=== PATIENT | female | born 1990 | race American Indian/Alaskan Native ===

== ENCOUNTER 2017-08-11 12:46 | Emergency (ER) | payer BC ==
[2017-08-11 14:05] LABS: Basophils % (Auto) 0.5 % (0.0-1.8); Eosinophils % (Auto) 0.1 % (0.0-4.3); Hematocrit 40.6 % (30.3-42.9); Hemoglobin 13.9 gm/dl (10.1-14.3); Mean Corpuscular HGB Conc 34 % (30-34); Mean Corpuscular Hemoglobin 29 pg (28-32); Mean Corpuscular Volume 85 fl (79-97); Platelet Count 225 K/mm3 (140-440); Red Cell Distribution Width 12.5 % (13.2-15.2); White Blood Count 8.4 K/mm3 (4.5-11.0)
[2017-08-11 14:06] LABS: Alanine Aminotransferase 11 units/L (7-56); Albumin 4.4 g/dL (3.9-5); Alkaline Phosphatase 63 units/L (35-129); Anion Gap 23 mmol/L; BUN/Creatinine Ratio 15; Blood Urea Nitrogen 9 mg/dL (7-17); Calcium 9.6 mg/dL (8.4-10.2); Carbon Dioxide 18 mmol/L (22-30); Chloride 97.5 mmol/L (98-107); Glucose 122 mg/dL (65-100); Lipase 16 units/L (13-60); Potassium 4.6 mmol/L (3.6-5.0); Sodium 134 mmol/L (137-145); Total Protein 8.6 g/dL (6.3-8.2)
[2017-08-11 14:35] LABS: Bilirubin,Urine NEG (Negative); Blood,Urine SM (Negative); Ketones,Urine 80 mg/dL (Negative); Leukocyte Esterase,Urine NEG (Negative); Mucus,Urine FEW /HPF; Nitrite,Urine NEG (Negative); Urobilinogen,Urine < 2.0 mg/dL (<2.0)
--- NOTE | 2017-08-11 15:20 | Emergency Department Report ---
Chief Complaint: Abdominal Pain Stated Complaint: NAUSEA Time Seen by Provider: 08/11/17 15:16 - HPI History of Present Illness: PT c/o vomiting x 4-5 days. Decreased po intake. + acid reflux + upper abd discomfort. - ROS Review of Systems: + upper abd pain - vaginal bleeding - Exam Vital Signs: Vital Signs 08/11/17 13:19 Temperature 98.4 F Pulse Rate 79 Respiratory 16 Rate Blood Pressure 125/74 O2 Sat by Pulse 100 Oximetry Physical Exam: pt looks well, non toxic. steady gait. RUQ TTP MSE screening note: Focused history and physical exam performed. Due to findings the following was ordered: labs, US ED Medical Decision Making - Lab Data Result diagrams: 08/11/17 13:38 08/11/17 13:38 ED Disposition for MSE Condition: Stable Instructions: Abdominal Pain (ED) Referrals: PRIMARY CARE, [Primary Care Provider] - 3-5 Days
[2017-08-11] MEDS ORDERED: NACL 0.9% 1000 ML 1,000 ML IV ONE (15:22)
--- NOTE | 2017-08-11 18:05 | Ultrasound Report ---
FINAL REPORT PROCEDURE: US OB \T\lt; = 14 WEEKS FETUS TECHNIQUE: Real-time transabdominal and transvaginal sonography of the uterus, placenta, amniotic fluid, adnexa, and fetus was performed with image documentation. Measurements were obtained to determine age/size. M-mode Doppler was used to document heartbeat. CPT 56159 and 52716 HISTORY: RUQ abd pain, lower abd tenderness, + preg COMPARISON: No prior studies are available for comparison. FINDINGS: ADDITIONAL GESTATION: None. Single live intrauterine is seen with crown-rump length of 3.9 millimeters. This corresponds to 6 weeks 0 days gestational age. Estimated date of delivery is April 06, 2018. heart rate is 120 beats per minute. Yolk sac is seen. Minimal free pelvic fluid is likely physiologic. Right ovary measures 2.3 x 1.1 x 1.5 cm. Left ovary measures 4.3 x 2.7 x 3.3 cm. It has a complex cyst. Minimal likely physiologic free pelvic fluid is seen. IMPRESSION: 1. Single live intrauterine gestation at approximately 6 weeks 0 days 2. EDC by US April 06, 2018 3. Complete anatomic survey at 18-20 weeks suggested.
--- NOTE | 2017-08-11 18:06 | Ultrasound Report ---
FINAL REPORT PROCEDURE: US OB TRANSVAGINAL TECHNIQUE: Real-time transabdominal and transvaginal sonography of the uterus, placenta, amniotic fluid, adnexa, and fetus was performed with image documentation. Measurements were obtained to determine age/size. M-mode Doppler was used to document heartbeat. CPT 20429 and 63040 HISTORY: RUQ abd pain COMPARISON: No prior studies are available for comparison. FINDINGS: ADDITIONAL GESTATION: None. Single live intrauterine is seen with crown-rump length of 3.9 millimeters. This corresponds to 6 weeks 0 days gestational age. Estimated date of delivery is April 06, 2018. heart rate is 120 beats per minute. Yolk sac is seen. Minimal free pelvic fluid is likely physiologic. Right ovary measures 2.3 x 1.1 x 1.5 cm. Left ovary measures 4.3 x 2.7 x 3.3 cm. It has a complex cyst. Minimal likely physiologic free pelvic fluid is seen. IMPRESSION: 1. Single live intrauterine gestation at approximately six weeks 0 days 2. EDC by US April 06, 2018 3. Complete anatomic survey at 18-20 weeks suggested.
--- NOTE | 2017-08-11 18:17 | Ultrasound Report ---
FINAL REPORT EXAM: US ABDOMEN LIMITED HISTORY: RUQ abd pain TECHNIQUE: Directed sonography of the right upper quadrant. PRIORS: None. FINDINGS: Gallbladder is of normal size and echogenicity without evidence of calculi. Wall thickness within normal limits. Intra-and extrahepatic bile ducts are of normal caliber. Liver has normal homogeneous echogenicity without focal abnormalities. Right kidney measures 9.6 cm in longest dimension and is grossly unremarkable. Pancreas poorly visualized due to overlying bowel gas. IMPRESSION: 1. No acute findings.
[2017-08-11] MEDS ORDERED: REGLAN IV ONE (19:40)
[2017-08-11] MEDS ORDERED: NACL 0.9% 1000 ML 1,000 ML ONE (19:51)
[2017-08-11] MEDS ORDERED: TYLENOL PO ONE (20:47)
--- NOTE | 2017-08-11 21:47 | Emergency Department Report ---
Vomiting/Diarrhea - HPI Chief Complaint: Abdominal Pain Stated Complaint: NAUSEA Time Seen by Provider: 08/11/17 15:16 Duration: 3 Days Severity: severe Nausea/Vomiting Severity: Severe Diarrhea Severity: None Pain Location: Other (pelvic pain) Pain Severity: Moderate Other History: Patient is a 26-year-old who presents due to nausea and vomiting 3 days. Patient states that she has had severe vomiting and has been retching. Patient denies any fever or chills. Patient states that she has epigastric pain and pelvic pain. Patient states that her last menstrual cycle was in July. Patient has any vaginal bleeding and states she has vaginal discharge. Patient is A1 L0. Patient denies any surgery in the past. ED Review of Systems ROS: Stated complaint: NAUSEA Other details as noted in HPI Comment: All other systems reviewed and negative Constitutional: no symptoms reported. denies: chills, diaphoresis, fever, malaise, weakness Respiratory: no symptoms reported. denies: cough, orthopnea, shortness of breath Cardiovascular: denies: chest pain Gastrointestinal: abdominal pain, nausea, vomiting. denies: diarrhea, constipation, hematemesis, hematochezia Genitourinary: discharge. denies: urgency, dysuria, frequency, hematuria, abnormal menses, dyspareunia Musculoskeletal: denies: back pain, joint swelling, arthralgia Skin: rash Neurological: denies: headache ED Past Medical Hx - Past Medical History Previous Medical History?: No - Surgical History Past Surgical History?: Yes Additional Surgical History: eye surgery as a child - Social History Smoking Status: Never Smoker Substance Use Type: None - Medications Home Medications: Home Medications Medication Instructions Recorded Confirmed Last Taken Type Acetaminophen [Tylenol Extra 500 mg PO Q8HR PRN #30 tablet 08/11/17 Unknown Rx Strength] Metoclopramide [Reglan] 10 mg PO Q6HR PRN #20 tab 08/11/17 Unknown Rx Vomiting Diarrhea Exam - Exam General: Vital signs noted. No distress. Alert and acting appropriately. Neck: No Adenopathy, No Rigidity Abdomen: Tenderness: Yes, Peritoneal Signs: No, Distention: No, Hyperactive Bowel sounds: No Skin exam: Rash: No, Edema: No Neurologic: Alert and oriented, no deficits. Musculoskeletal: Unremarkable. Exam: Patient had no tenderness with palpation of the epigastric area patient had generalized diffuse soreness. Pelvic exam was performed, patient had my mild white vaginal discharge. Cervical os was closed. ED Course Vital Signs 08/11/17 13:19 Temperature 98.4 F Pulse Rate 79 Respiratory 16 Rate Blood Pressure 125/74 O2 Sat by Pulse 100 Oximetry ED Medical Decision Making - Lab Data Result diagrams: 08/11/17 13:38 08/11/17 13:38 Lab Results 08/11/17 08/11/17 08/11/17 Range/Units 13:38 13:38 13:38 WBC 8.4 (4.5-11.0) K/mm3 RBC 4.80 (3.65-5.03) M/mm3 Hgb 13.9 (10.1-14.3) gm/dl Hct 40.6 (30.3-42.9) % MCV 85 (79-97) fl MCH 29 (28-32) pg MCHC 34 (30-34) % RDW 12.5 L (13.2-15.2) % Plt Count 225 (140-440) K/mm3 Lymph % (Auto) 13.0 L (13.4-35.0) % [place] % (Auto) 5.0 (0.0-7.3) % Eos % (Auto) 0.1 (0.0-4.3) % Baso % (Auto) 0.5 (0.0-1.8) % Lymph # 1.1 L (1.2-5.4) K/mm3 [place] # 0.4 (0.0-0.8) K/mm3 Eos # 0.0 (0.0-0.4) K/mm3 Baso # 0.0 (0.0-0.1) K/mm3 Seg Neutrophils % 81.4 H (40.0-70.0) % Seg Neutrophils # 6.8 (1.8-7.7) K/mm3 Sodium 134 L (137-145) mmol/L Potassium 4.6 (3.6-5.0) mmol/L Chloride 97.5 L (98-107) mmol/L Carbon Dioxide 18 L (22-30) mmol/L Anion Gap 23 mmol/L BUN 9 (7-17) mg/dL Creatinine 0.6 L (0.7-1.2) mg/dL Estimated GFR > 60 ml/min BUN/Creatinine Ratio 15 % Glucose 122 H (65-100) mg/dL Calcium 9.6 (8.4-10.2) mg/dL Total Bilirubin 0.60 (0.1-1.2) mg/dL AST 13 (5-40) units/L ALT 11 (7-56) units/L Alkaline Phosphatase 63 (35-129) units/L Total Protein 8.6 H (6.3-8.2) g/dL Albumin 4.4 (3.9-5) g/dL Albumin/Globulin Ratio 1.0 % Lipase 16 (13-60) units/L HCG, Qual Positive (Negative) HCG, Quant (0-4) mIU/mL Urine Color (Yellow) Urine Turbidity (Clear) Urine pH (5.0-7.0) Ur Specific [place] (1.003-1.030) Urine Protein (Negative) mg/dL Urine Glucose (UA) (Negative) mg/dL Urine Ketones (Negative) mg/dL Urine Blood (Negative) Urine Nitrite (Negative) Urine Bilirubin (Negative) Urine Urobilinogen (<2.0) mg/dL Ur Leukocyte Esterase (Negative) Urine WBC (Auto) (0.0-6.0) /HPF Urine RBC (Auto) (0.0-6.0) /HPF U Epithel Cells (Auto) (0-13.0) /HPF Urine Mucus /HPF Blood Type 08/11/17 08/11/17 08/11/17 Range/Units 13:38 13:45 19:30 WBC (4.5-11.0) K/mm3 RBC (3.65-5.03) M/mm3 Hgb (10.1-14.3) gm/dl Hct (30.3-42.9) % MCV (79-97) fl MCH (28-32) pg MCHC (30-34) % RDW (13.2-15.2) % Plt Count (140-440) K/mm3 Lymph % (Auto) (13.4-35.0) % [place] % (Auto) (0.0-7.3) % Eos % (Auto) (0.0-4.3) % Baso % (Auto) (0.0-1.8) % Lymph # (1.2-5.4) K/mm3 [place] # (0.0-0.8) K/mm3 Eos # (0.0-0.4) K/mm3 Baso # (0.0-0.1) K/mm3 Seg Neutrophils % (40.0-70.0) % Seg Neutrophils # (1.8-7.7) K/mm3 Sodium (137-145) mmol/L Potassium (3.6-5.0) mmol/L Chloride (98-107) mmol/L Carbon Dioxide (22-30) mmol/L Anion Gap mmol/L BUN (7-17) mg/dL Creatinine (0.7-1.2) mg/dL Estimated GFR ml/min BUN/Creatinine Ratio % Glucose (65-100) mg/dL Calcium (8.4-10.2) mg/dL Total Bilirubin (0.1-1.2) mg/dL AST (5-40) units/L ALT (7-56) units/L Alkaline Phosphatase (35-129) units/L Total Protein (6.3-8.2) g/dL Albumin (3.9-5) g/dL Albumin/Globulin Ratio % Lipase (13-60) units/L HCG, Qual (Negative) HCG, Quant 13948 H (0-4) mIU/mL Urine Color Yellow (Yellow) Urine Turbidity Clear (Clear) Urine pH 6.0 (5.0-7.0) Ur Specific [place] 1.033 H (1.003-1.030) Urine Protein 100 mg/dl (Negative) mg/dL Urine Glucose (UA) Neg (Negative) mg/dL Urine Ketones 80 (Negative) mg/dL Urine Blood Sm (Negative) Urine Nitrite Neg (Negative) Urine Bilirubin Neg (Negative) Urine Urobilinogen < 2.0 (<2.0) mg/dL Ur Leukocyte Esterase Neg (Negative) Urine WBC (Auto) 1.0 (0.0-6.0) /HPF Urine RBC (Auto) 3.0 (0.0-6.0) /HPF U Epithel Cells (Auto) 4.0 (0-13.0) /HPF Urine Mucus Few /HPF Blood Type B POSITIVE - Radiology Data Radiology results: report reviewed Ultrasound OB less than 14 weeks shows a gestational sac that measures 6 weeks. heart beat is 120. - Medical Decision Making Patient was in no acute distress, patient was able to eat crackers and juice. Patient's IV infiltrated in the left before meals, patient refused to have another IV inserted. Patient had about 200 mL from the normal saline 1 L back. Patient was able to tolerate liquids and eat crackers in the ER without vomiting. Patient was given Tylenol 1000 mg in the ER due to pelvic pain. Patient was informed of ultrasound results. Patient was told to follow-up with the her BOAT RENTAL CLERK, patient stated that she had an appointment with her BOAT RENTAL CLERK Dr. Potter tomorrow. - Differential Diagnosis hyperemesis gravidarum, , ovarian cysts, gastritis Critical care attestation.: If time is entered above; I have spent that time in minutes in the direct care of this critically ill patient, excluding procedure time. ED Disposition Clinical Impression: Hyperemesis gravidarum, 6 weeks gestation of Disposition: TO HOME OR SELFCARE Is pt being admited?: No Does the pt Need Aspirin: No Condition: Good Instructions: Hyperemesis Gravidarum (ED), (ED) Additional Instructions: Drink lots of fluids to prevent dehydration. Follow-up with the provided OB/ [employer]. Return to the ER if he started having severe vomiting, abdominal pain, vaginal bleeding. Prescriptions: Acetaminophen [Tylenol Extra Strength] 500 mg PO Q8HR PRN #30 tablet PRN Reason: Pain Metoclopramide [Reglan] 10 mg PO Q6HR PRN #20 tab PRN Reason: Nausea Referrals: PRIMARY CARE,MD [Primary Care Provider] - 3-5 Days Time of Disposition: 21:47
[2017-08-11 21:59] VITALS: BP 132/59
== END 2017-08-11 22:05 | disposition home or self-care (01) ==
LOC: ED 12:46
DX: O21.0 Mild hyperemesis gravidarum (principal); Z3A.01 Less than 8 weeks gestation of pregnancy
CPT/HCPCS: 36415; 76705; 76801; 76817; 80053; 81001; 83690; 84702; 84703; 85025; 86900; 86901; 87210; 87591; 96361; 96374; 99284; J2765; J7030

== ENCOUNTER 2018-03-01 10:45 | Inpatient (IN) | payer BC ==
[2018-03-01] MEDS ORDERED: ZOFRAN IV PRN (10:50)
--- NOTE | 2018-03-01 11:46 | History and Physical Report ---
History of Present Illness Date of examination: 03/01/18 Chief complaint: Severe nausea and vomiting and dehydration Past History Past Medical History: no pertinent history - Obstetrical History Expected Date of Delivery: 10/18/18 Actual Gestation: 7 Week(s) 0 Day(s) Medications and Allergies Allergies Allergy/AdvReac Type Severity Reaction Status Date / Time No Known Allergies Allergy Unverified 07/01/16 07:25 Home Medications Medication Instructions Recorded Confirmed Last Taken Type Acetaminophen [Tylenol Extra 500 mg PO Q8HR PRN #30 tablet 08/11/17 Unknown Rx Strength] Metoclopramide [Reglan] 10 mg PO Q6HR PRN #20 tab 08/11/17 Unknown Rx Active Meds: Active Medications Dextrose/Lactated Ringer's (D5lr) 1,000 mls @ 500 mls/hr IV DIRECT VEL Stop: 03/02/18 12:59 Dextrose/Lactated Ringer's (D5lr) 1,000 mls @ 150 mls/hr IV DIRECT VEL Metoclopramide HCl (Reglan) 10 mg IV Q6H VEL Ondansetron HCl (Zofran) 4 mg IV Q6H PRN PRN Reason: N/V unrelieved by Reglan Promethazine HCl (Phenergan) 25 mg VT Q6H VEL Review of Systems All systems: negative Gastrointestinal: nausea, vomiting Results All other labs normal. Assessment and Plan - Patient Problems (1) 7 weeks gestation of Status: Acute (2) Severe nausea and vomiting Status: Acute Plan to address problem: Admit for hyperemesis pathway
[2018-03-01] MEDS: D5LR 1,000 ML IV SCH ×4 (12:00→22:42)
[2018-03-01] MEDS: PHENERGAN PR SCH (12:05)
[2018-03-01] MEDS: REGLAN IV SCH (12:16)
[2018-03-01 13:46] LABS: Alanine Aminotransferase 20 units/L (7-56); Albumin 3.7 g/dL (3.9-5); BUN/Creatinine Ratio 13; Blood Urea Nitrogen 8 mg/dL (7-17); Calcium 9.4 mg/dL (8.4-10.2); Hemolysis Index 12; Lipase 15 units/L (13-60)
[2018-03-01 14:21] LABS: Bilirubin,Urine NEG (Negative); Blood,Urine NEG (Negative); Color,Urine Amber (Yellow); Mucus,Urine 3+ /HPF
[2018-03-01] MEDS ORDERED: PEPCID IV ONE (18:00)
--- NOTE | 2018-03-01 23:23 | Event Note ---
Date: 03/01/18 Called by charge nurse as pt is refusing to have IV restarted as currently one was not allowed by pt to be flushed by Rn for the evening and she requested a new nurse.When charge nurse came to bedside, pt was on the phone with her mother who states she was coming to hospital and that the pt was not to get any further treatment until she gets there. She was getting the reglan IV which she did not get due to IV infiltrating as well as to have the phenergan which she refused. Pt has tolerated ice chips and clear liquids since being on the floor with no episodes of emesis. K+ was just slightly decreased at 3.5 and normal is 3.6. I advised that if pt refuses the IV, then we will just try to treat with oral meds and monitor for emesis. Charge nurse expressed understanding and questions were addressed and answered.
[2018-03-02] MEDS: REGLAN IV SCH ×3 (00:20→11:46)
[2018-03-02] MEDS: PHENERGAN PR SCH ×5 (01:50→23:00)
[2018-03-02] MEDS: D5LR 1,000 ML IV SCH ×3 (05:33→18:08)
--- NOTE | 2018-03-02 06:43 | Event Note ---
Date: 03/02/18 (Cereal Maker Note) Pt sleeping No c/o N&V @ this time. IVFs infusing from new start site. PO ice chips VSS Pt has not voided for recheck of ketones @ this time. IUP 7 weeks N&V P: continue pathway Adv as tolerated. Consult with .
[2018-03-02] MEDS: PEPCID PO SCH ×2 (15:09→23:39)
--- NOTE | 2018-03-02 15:49 | Progress Note ---
Assessment and Plan - Patient Problems (1) 7 weeks gestation of Current Visit: Yes Status: Acute (2) Severe nausea and vomiting Current Visit: Yes Status: Acute Plan to address problem: Urine ketines have cleared, will change to po Reglan and Pepcid INT IV if able to tolerate po and labs normal Possible d/c home tomorrow (3) Hypokalemia Current Visit: Yes Status: Acute Plan to address problem: Rechk now (4) Hyponatremia Current Visit: Yes Status: Acute Plan to address problem: rechk now Subjective - Subjective Date of service: 03/02/18 Principal diagnosis: 7 weeks, hyperemesis Interval history: Feels better, tolerated peanut butter and jelly Patient reports: no new complaints, no vaginal bleeding Objective - Vital Signs Vital Signs: Vital Signs - 12hr 03/02/18 03/02/18 05:30 08:39 Temperature 98.5 F 97.6 F Pulse Rate 69 66 Respiratory 20 18 Rate Blood Pressure 107/53 106/60 O2 Sat by Pulse 100 100 Oximetry - Labs Labs: Abnormal Labs 03/01/18 03/01/18 13:10 13:52 Sodium 133 L Potassium 3.5 L Chloride 95.2 L Creatinine 0.6 L Glucose 192 H Albumin 3.7 L Ur Specific [place] 1.035 H Urine WBC (Auto) 14.0 H Laboratory Results - last 24 hr 03/02/18 14:40 Urine Ketones Neg
[2018-03-02 16:15] LABS: BUN/Creatinine Ratio 12; Blood Urea Nitrogen 6 mg/dL (7-17); Calcium 8.7 mg/dL (8.4-10.2); Hemolysis Index 15
[2018-03-02] MEDS: REGLAN PO SCH ×2 (16:27→23:39)
[2018-03-02] MEDS ORDERED: REGLAN PO PRN (18:00)
[2018-03-03] MEDS: D5LR 1,000 ML IV SCH (01:44)
[2018-03-03] MEDS: REGLAN PO SCH ×2 (04:39→10:05)
--- NOTE | 2018-03-03 08:27 | Discharge Summary ---
Providers - Providers Date of Admission: 03/01/18 11:17 Date of discharge: 03/03/18 Attending physician: WYATT MERCEDES 03/01/18 10:50 Consult to Dietitian/Nutrition [CONS] Routine Physician Instructions: Reason For Exam: Reason for Consult: hyper grav Reason for Consult: Diet education Primary care physician: WYATT MERCEDES Hospitalization Reason for admission: hyperemesis Condition: Good Pertinent studies: ketones negative Hospital course: rehydration and control of n/v in early Disposition: DC-01 TO HOME OR SELFCARE - Discharge Diagnoses (1) Severe nausea and vomiting Status: Acute Core Measure Documentation - Palliative Care Palliative Care/ Comfort Measures: Not Applicable - Core Measures Any of the following diagnoses?: none Exam - Constitutional Vitals: Temp Pulse Resp BP Pulse Ox 98.4 F 81 20 118/64 100 03/03/18 04:33 03/03/18 04:33 03/03/18 04:33 03/03/18 04:33 03/03/18 04:33 General appearance: Present: no acute distress, well-nourished - EENT Eyes: Present: PERRL ENT: hearing intact, clear oral mucosa - Neck Neck: Present: supple, normal ROM - Respiratory Respiratory effort: normal Respiratory: bilateral: CTA - Cardiovascular Heart Sounds: Present: S1 & S2. Absent: rub, click - Extremities Extremities: pulses symmetrical, No edema Peripheral Pulses: within normal limits - Abdominal General gastrointestinal: Present: soft, non-tender, non-distended, normal bowel sounds Female genitourinary: Present: normal - Integumentary Integumentary: Present: clear, warm, dry - Musculoskeletal Musculoskeletal: gait normal, strength equal bilaterally - Psychiatric Psychiatric: appropriate mood/affect, intact judgment & insight - Neurologic Neurologic: CNII-XII intact, moves all extremities - Additional findings Additional findings: pt tolerating diet, no vomiting >24h. Plan Activity: no restrictions Diet: regular, advance as tolerated Follow up with: WYATT MERCEDES MD [Primary Care Provider] - 03/10/18 (Please call for any questions or concerns, keep next scheduled appointment in the office 03/10/18.) Prescriptions: Metoclopramide [Reglan] 10 mg PO Q6H #60 tab
--- NOTE | 2018-03-03 08:33 | Event Note ---
Date: 03/03/18 Pt feeling much better. Potassium now normal.She has tolerated a regular diet w/ o emesis. Will d/c home on po reglan which she also tolerated yesterday.
[2018-03-03 09:11] VITALS: BP 116/60
[2018-03-03] MEDS: PEPCID PO SCH (10:05)
== END 2018-03-03 11:15 | disposition home or self-care (01) | DRG 781 ==
LOC: UNDOADMIN 10:45 → 3A 10:45 → OB 11:17
PROVIDERS: ADMIT Obstetrics & Gynecology; ATTEND Obstetrics & Gynecology
DX: O21.9 Vomiting of pregnancy, unspecified (principal); E87.1 Hypo-osmolality and hyponatremia; E86.0 Dehydration; O26.891 Other specified pregnancy related conditions, first trimester; E87.6 Hypokalemia; Z3A.01 Less than 8 weeks gestation of pregnancy
CPT/HCPCS: 36415; 80048; 80053; 81001; 82010; 82150; 83690; 84439; J2765; J7121

== ENCOUNTER 2018-03-22 12:19 | Emergency (ER) | payer BC ==
[2018-03-22] MEDS ORDERED: TYLENOL PO ONE (16:22)
[2018-03-22] MEDS ORDERED: ZOFRAN IV ONE (16:22)
[2018-03-22] MEDS ORDERED: PEPCID IV ONE (16:22)
--- NOTE | 2018-03-22 16:27 | Emergency Department Report ---
Blank Doc - Documentation Documentation: 27-year-old female presents to the hospital currently 10 weeks complaining of nausea, vomiting, and by mouth intolerance the past 3 days. Patient was prescribed 2 prescriptions for Reglan 10mg. One is for every 12 hours to increase to every 6 hours without improvement. Patient did not realize that this was the same medication but has not been taking any more frequently then every 6 hours. The patient complained of blood streaked vomitus yesterday that time grossly bloody today however he has been beginning to clear up again. She complains of epigastric abdominal pain. Patient follows a MY CANNERY WORKER and had an ultrasound at approximately 6 weeks showing an IUP. labs, ua ordered meds pepcid, zofran, d5ns ivf, tylenol midlevel to reevaluate
[2018-03-22] MEDS ORDERED: D5NS 1,000 ML IV SCH (17:00)
[2018-03-22 17:03] LABS: Bilirubin,Urine NEG (Negative); Blood,Urine NEG (Negative); Color,Urine Amber (Yellow); Mucus,Urine 3+ /HPF
[2018-03-22 17:28] LABS: Hematocrit 41.6 % (30.3-42.9); Mean Corpuscular HGB Conc 34 % (30-34); Mean Corpuscular Hemoglobin 28 pg (28-32); Mean Corpuscular Volume 84 fl (79-97); Red Blood Count 4.95 M/mm3 (3.65-5.03); Red Cell Distribution Width 14.8 % (13.2-15.2)
[2018-03-22 17:32] LABS: Platelet Count 131 K/mm3 (140-440)
[2018-03-22 17:56] LABS: Alanine Aminotransferase 22 units/L (7-56); Albumin 4.2 g/dL (3.9-5); BUN/Creatinine Ratio 14; Blood Urea Nitrogen 7 mg/dL (7-17); Hemolysis Index 8; Lipase 15 units/L (13-60)
--- NOTE | 2018-03-22 17:59 | Emergency Department Report ---
ED N/V/D HPI - General Chief complaint: Nausea/Vomiting/Diarrhea Stated complaint: /SOB Time Seen by Provider: 03/22/18 14:28 Source: patient Mode of arrival: Ambulatory Limitations: No Limitations - History of Present Illness Initial comments: 27-year-old female presents to the hospital currently 10 weeks complaining of nausea, vomiting, and by mouth intolerance the past 3 days. Patient was prescribed 2 prescriptions for Reglan 10mg. One is for every 12 hours to increase to every 6 hours without improvement. Patient did not realize that this was the same medication but has not been taking any more frequently then every 6 hours. The patient complained of blood streaked vomitus yesterday that time grossly bloody today however he has been beginning to clear up again. She complains of epigastric abdominal pain. Patient follows a [facility] and had an ultrasound at approximately 6 weeks showing an IUP. Denies any shortness of breath at present. She's that she had some shortness of breath and Thursday but none now. Denies any chest pain. MD complaint: nausea, vomiting, abdominal pain Onset/Timin -: days(s) Description of Vomiting: watery, blood-streaked (intermittent facets got better today thinks it's from her vomiting.) Description of Diarrhea: other (no diarrhea) Associated Abdominal Pain: Yes Location: epigastric Radiation: none Severity: severe Pain Scale: 9 Quality: other (burning in) Consistency: intermittent Improves with: none Worsens with: none Context: other (patient is and had a similar episode 3 weeks ago where she was hospitalized) Associated Symptoms: loss of appetite, nausea/vomiting, weakness. denies: myalgias, chest pain, cough, diaphoresis, fever/chills, headaches, malaise, rash , dysuria, shortness of breath, syncope - Related Data Previous Rx's Medication Instructions Recorded Last Taken Type Acetaminophen [Tylenol Extra 500 mg PO Q8HR PRN #30 tablet 08/11/17 Unknown Rx Strength] Promethazine [Phenergan TAB] 25 mg PO Q6HR PRN #16 tab 03/22/18 Unknown Rx Allergies Allergy/AdvReac Type Severity Reaction Status Date / Time No Known Allergies Allergy Unverified 07/01/16 07:25 ED Review of Systems ROS: Stated complaint: /SOB Other details as noted in HPI Constitutional: weakness. denies: chills, fever Eyes: denies: eye pain, eye discharge, vision change ENT: denies: ear pain, throat pain, congestion Respiratory: denies: cough, orthopnea, shortness of breath, SOB with exertion, SOB at rest, stridor, wheezing Cardiovascular: denies: chest pain, palpitations, edema, syncope Gastrointestinal: vomiting. denies: abdominal pain, nausea, diarrhea, constipation, hematemesis, melena, hematochezia Genitourinary: other (patient is at 10 weeks). denies: urgency, dysuria, frequency, hematuria, discharge Musculoskeletal: denies: back pain, joint swelling, arthralgia Skin: denies: rash, lesions Neurological: denies: headache, weakness, paresthesias, abnormal gait ED Past Medical Hx - Past Medical History Previous Medical History?: Yes Additional medical history: Hyperemesis gravidarum - Surgical History Past Surgical History?: Yes Additional Surgical History: eye surgery as a child - Family History Family history: hypertension - Social History Smoking Status: Never Smoker Substance Use Type: None Other Social History: Patient is and lives with family - Medications Home Medications: Home Medications Medication Instructions Recorded Confirmed Last Taken Type Acetaminophen [Tylenol Extra 500 mg PO Q8HR PRN #30 tablet 08/11/17 03/02/18 Unknown Rx Strength] Promethazine [Phenergan TAB] 25 mg PO Q6HR PRN #16 tab 03/22/18 Unknown Rx ED Physical Exam - General Limitations: No Limitations General appearance: alert, in no apparent distress - Head Head exam: Present: atraumatic, normocephalic, normal inspection - Eye Eye exam: Present: normal appearance, PERRL, EOMI Pupils: Present: normal accommodation - ENT ENT exam: Present: normal orophraynx, mucous membranes dry, TM's normal bilaterally, normal external ear exam. Absent: normal exam - Neck Neck exam: Present: normal inspection, full ROM, other (no C-spine tenderness). Absent: tenderness, lymphadenopathy - Respiratory Respiratory exam: Present: normal lung sounds bilaterally. Absent: respiratory distress, wheezes, rales, rhonchi, stridor, chest wall tenderness, accessory muscle use, decreased breath sounds, prolonged expiratory - Cardiovascular Cardiovascular Exam: Present: regular rate, normal rhythm. Absent: systolic murmur, diastolic murmur - GI/Abdominal GI/Abdominal exam: Present: soft, normal bowel sounds. Absent: distended, tenderness, guarding, rebound, rigid, organomegaly, mass, bruit, pulsatile mass , hernia - Extremities Exam Extremities exam: Present: normal inspection, full ROM, normal capillary refill , other (no clubbing, cyanosis or edema. +2 pulses all extremities and no neurovascular compromise.). Absent: tenderness, pedal edema, joint swelling, calf tenderness - Back Exam Back exam: Present: normal inspection, full ROM, other (ambulates without any difficulties). Absent: tenderness, CVA tenderness (R), CVA tenderness (L), muscle spasm, paraspinal tenderness, vertebral tenderness, rash noted - Neurological Exam Neurological exam: Present: alert, oriented X3, normal gait - Psychiatric Psychiatric exam: Present: normal affect, normal mood - Skin Skin exam: Present: warm, dry, intact, normal color. Absent: rash ED Course Vital Signs 03/22/18 13:46 Temperature 98.8 F Pulse Rate 98 H Respiratory 18 Rate Blood Pressure 159/84 O2 Sat by Pulse 100 Oximetry - Reevaluation(s) Reevaluation #1: 03/22/18 18:[address] Krishna and patient was given D5 normal saline 1 L, Zofran 8 mg IV, Pepcid 20 mg IV which she said helped her nausea a little but not completely relieved. She was also given Tylenol 975 mg for epigastric pain which has been ongoing since Thursday. Reevaluation #2: 03/22/18 18:38 Patient's laboratory values reviewed and limits at 131 which is different from her platelet count from 03/01/2018. Urine with trace ketone and when compared to last urine ketone was 80. Urine protein at 100 which was the same as last urinalysis. I spoke with Dr. Corral at [facility] and she wants patient to have Phenergan by mouth. I discussed this with patient and she agrees. Her potassium is 3.6. Patient was worried about anemia but she is stable per CBC today. Abdomen saline 1 L and she isn't. Abdomen nontender to palpate at present. Reevaluation #3: 03/22/18 19:43 Patient is stable, nausea resolved. No episode of diarrhea in emergency room. Patient received another 1 L of normal saline which is completed and she is able to tolerate oral liquids in the emergency room. She is feeling better and ready to go - Consultations Consultation #1: 03/22/18 18:38 MANINDER Barros [facility] ED Medical Decision Making - Lab Data Result diagrams: 03/22/18 16:54 03/22/18 16:54 Lab Results 03/22/18 03/22/18 03/22/18 Range/Units 16:00 16:54 16:54 WBC 8.7 (4.5-11.0) K/mm3 RBC 4.95 (3.65-5.03) M/mm3 Hgb 14.0 (10.1-14.3) gm/dl Hct 41.6 (30.3-42.9) % MCV 84 (79-97) fl MCH 28 (28-32) pg MCHC 34 (30-34) % RDW 14.8 (13.2-15.2) % Plt Count 131 L (140-440) K/mm3 Add Manual Diff Complete Total Counted 100 Seg Neuts % (Manual) 81.0 H (40.0-70.0) % Band Neutrophils % 0 % Lymphocytes % (Manual) 14.0 (13.4-35.0) % Reactive Lymphs % (Man) 0 % Monocytes % (Manual) 4.0 (0.0-7.3) % Eosinophils % (Manual) 0 (0.0-4.3) % Basophils % (Manual) 0 (0.0-1.8) % Metamyelocytes % 1.0 % Myelocytes % 0 % Promyelocytes % 0 % Blast Cells % 0 % Nucleated RBC % Not Reportable Seg Neutrophils # Man 7.0 (1.8-7.7) K/mm3 Band Neutrophils # 0.0 K/mm3 Lymphocytes # (Manual) 1.2 (1.2-5.4) K/mm3 Abs React Lymphs (Man) 0.0 K/mm3 Monocytes # (Manual) 0.3 (0.0-0.8) K/mm3 Eosinophils # (Manual) 0.0 (0.0-0.4) K/mm3 Basophils # (Manual) 0.0 (0.0-0.1) K/mm3 Metamyelocytes # 0.1 K/mm3 Myelocytes # 0.0 K/mm3 Promyelocytes # 0.0 K/mm3 Blast Cells # 0.0 K/mm3 WBC Morphology Not Reportable Hypersegmented Neuts Not Reportable Hyposegmented Neuts Not Reportable Hypogranular Neuts Not Reportable Smudge Cells Not Reportable Toxic Granulation Not Reportable Toxic Vacuolation Not Reportable Dohle Bodies Not Reportable Pelger-Huet Anomaly Not Reportable [place] Rods Not Reportable Platelet Estimate Consistent w auto Clumped Platelets Not Reportable Plt Clumps, EDTA Not Reportable Large Platelets Few Giant Platelets Not Reportable Platelet Satelliting Not Reportable Plt Morphology Comment Not Reportable RBC Morphology Not Reportable Dimorphic RBCs Not Reportable Polychromasia Not Reportable Hypochromasia Not Reportable Poikilocytosis 1+ Anisocytosis 1+ Microcytosis Not Reportable Macrocytosis Not Reportable Spherocytes Not Reportable Pappenheimer Bodies Not Reportable Sickle Cells Not Reportable Target Cells Not Reportable Tear Drop Cells Not Reportable Ovalocytes Not Reportable Helmet Cells Not Reportable Caldwell-Normal Bodies Not Reportable [place] Rings Not Reportable Ollie Cells Not Reportable Bite Cells Not Reportable Crenated Cell Not Reportable Elliptocytes Not Reportable Acanthocytes (Spur) Not Reportable Rouleaux Not Reportable Hemoglobin C Crystals Not Reportable Schistocytes Not Reportable Malaria parasites Not Reportable Donald Bodies Not Reportable Hem Pathologist Commnt No Sodium 134 L (137-145) mmol/L Potassium 3.6 (3.6-5.0) mmol/L Chloride 94.8 L (98-107) mmol/L Carbon Dioxide 22 (22-30) mmol/L Anion Gap 21 mmol/L BUN 7 (7-17) mg/dL Creatinine 0.5 L (0.7-1.2) mg/dL Estimated GFR > 60 ml/min BUN/Creatinine Ratio 14 % Glucose 77 (65-100) mg/dL Calcium 10.0 (8.4-10.2) mg/dL Total Bilirubin 0.50 (0.1-1.2) mg/dL AST 13 (5-40) units/L ALT 22 (7-56) units/L Alkaline Phosphatase 59 (35-129) units/L Total Protein 8.3 H (6.3-8.2) g/dL Albumin 4.2 (3.9-5) g/dL Albumin/Globulin Ratio 1.0 % Lipase 15 (13-60) units/L HCG, Quant (0-4) mIU/mL Urine Color Sheila (Yellow) Urine Turbidity Clear (Clear) Urine pH 6.0 (5.0-7.0) Ur Specific [place] 1.031 H (1.003-1.030) Urine Protein 100 mg/dl (Negative) mg/dL Urine Glucose (UA) Neg (Negative) mg/dL Urine Ketones Tr (Negative) mg/dL Urine Blood Neg (Negative) Urine Nitrite Neg (Negative) Urine Bilirubin Neg (Negative) Urine Urobilinogen 4.0 (<2.0) mg/dL Ur Leukocyte Esterase Neg (Negative) Urine WBC (Auto) 4.0 (0.0-6.0) /HPF Urine RBC (Auto) 9.0 (0.0-6.0) /HPF U Epithel Cells (Auto) 6.0 (0-13.0) /HPF Urine Mucus 3+ /HPF / Range/Units 16:54 WBC (4.5-11.0) K/mm3 RBC (3.65-5.03) M/mm3 Hgb (10.1-14.3) gm/dl Hct (30.3-42.9) % MCV (79-97) fl MCH (28-32) pg MCHC (30-34) % RDW (13.2-15.2) % Plt Count (140-440) K/mm3 Add Manual Diff Total Counted Seg Neuts % (Manual) (40.0-70.0) % Band Neutrophils % % Lymphocytes % (Manual) (13.4-35.0) % Reactive Lymphs % (Man) % Monocytes % (Manual) (0.0-7.3) % Eosinophils % (Manual) (0.0-4.3) % Basophils % (Manual) (0.0-1.8) % Metamyelocytes % % Myelocytes % % Promyelocytes % % Blast Cells % % Nucleated RBC % Seg Neutrophils # Man (1.8-7.7) K/mm3 Band Neutrophils # K/mm3 Lymphocytes # (Manual) (1.2-5.4) K/mm3 Abs React Lymphs (Man) K/mm3 Monocytes # (Manual) (0.0-0.8) K/mm3 Eosinophils # (Manual) (0.0-0.4) K/mm3 Basophils # (Manual) (0.0-0.1) K/mm3 Metamyelocytes # K/mm3 Myelocytes # K/mm3 Promyelocytes # K/mm3 Blast Cells # K/mm3 WBC Morphology Hypersegmented Neuts Hyposegmented Neuts Hypogranular Neuts Smudge Cells Toxic Granulation Toxic Vacuolation Dohle Bodies Pelger-Huet Anomaly [place] Rods Platelet Estimate Clumped Platelets Plt Clumps, EDTA Large Platelets Giant Platelets Platelet Satelliting Plt Morphology Comment RBC Morphology Dimorphic RBCs Polychromasia Hypochromasia Poikilocytosis Anisocytosis Microcytosis Macrocytosis Spherocytes Pappenheimer Bodies Sickle Cells Target Cells Tear Drop Cells Ovalocytes Helmet Cells Caldwell-Normal Bodies [place] Rings Radha Cells Bite Cells Crenated Cell Elliptocytes Acanthocytes (Spur) Rouleaux Hemoglobin C Crystals Schistocytes Malaria parasites Donald Bodies Hem Pathologist Commnt Sodium (137-145) mmol/L Potassium (3.6-5.0) mmol/L Chloride (98-107) mmol/L Carbon Dioxide (22-30) mmol/L Anion Gap mmol/L BUN (7-17) mg/dL Creatinine (0.7-1.2) mg/dL Estimated GFR ml/min BUN/Creatinine Ratio % Glucose (65-100) mg/dL Calcium (8.4-10.2) mg/dL Total Bilirubin (0.1-1.2) mg/dL AST (5-40) units/L ALT (7-56) units/L Alkaline Phosphatase (35-129) units/L Total Protein (6.3-8.2) g/dL Albumin (3.9-5) g/dL Albumin/Globulin Ratio % Lipase (13-60) units/L HCG, Quant 18666 H (0-4) mIU/mL Urine Color (Yellow) Urine Turbidity (Clear) Urine pH (5.0-7.0) Ur Specific [place] (1.003-1.030) Urine Protein (Negative) mg/dL Urine Glucose (UA) (Negative) mg/dL Urine Ketones (Negative) mg/dL Urine Blood (Negative) Urine Nitrite (Negative) Urine Bilirubin (Negative) Urine Urobilinogen (<2.0) mg/dL Ur Leukocyte Esterase (Negative) Urine WBC (Auto) (0.0-6.0) /HPF Urine RBC (Auto) (0.0-6.0) /HPF U Epithel Cells (Auto) (0-13.0) /HPF Urine Mucus /HPF - Medical Decision Making ED course: Diagnosis 1-epigastric pain and -abdominal exam is benign and patient is nontender to palpate. No acute abdomen. Patient had ultrasound at 6 weeks with my [facility] which shows IUP. She has been followed closely by [facility]. Pain has now resolved per patient. She was given Tylenol 975 mg by mouth emergency room. 2: Nausea and vomiting and -patient reports that she had some blood in her vomit but no episode of vomiting while in the emergency room. -Patient labs are stable and when comparing to labs from 03/01/2018 when she was admitted for hyperemesis gravidarum labs are better. CBC stable except she has platelet of 131 and no history of low platelet. I communicated with Dr. Solis at [facility] and she is okay with patient going home. Patient has no overt signs of bleeding and her H&H is stable. No bruising to her skin. -Instructed patient on bland diet for the next 72 hours and to avoid spicy food and carbonated beverages.. -Patient was given Zofran 8 mg IV and Pepcid 20 mg IV. She was given Phenergan 50 mg by mouth after speaking with my [facility] and her nausea has now resolved. Patient will be discharged home with prescription for Phenergan per [facility] and to discontinue her Reglan. 3-mild dehydration-patient given IV fluid D5 normal saline 1 L and additional normal saline 1 L. She is able to tolerate oral liquids without any vomiting. 4-thrombocytopenia with platelet at 131-no signs of bleeding and [facility] is aware of this. Patient to follow-up in 2 days[address] spoke with Dr[address] Hernandez at [facility] and gave her patient lab results and also patient presentation and complaints. She wants patient to be discharged off Reglan and to start Phenergan by mouth. She also wants patient to follow up with her office in 2 days to call tomorrow to schedule an appointment. I discussed this with patient along with diagnosis and treatment plan and she voiced understanding. Patient discharged home with her from ED with prescription for Phenergan and to discontinue her Reglan. She also agrees that patient does not need repeat ultrasound as the patient was in hospital 3 weeks ago and was stable and she had ultrasound at 6 weeks which showed IUP and patient is not having any vaginal bleeding or discharge and no concern for STDs. Lab results, diagnosis, treatment plan and follow-up was discussed patient and she agrees to plan. Critical care attestation.: If time is entered above; I have spent that time in minutes in the direct care of this critically ill patient, excluding procedure time. ED Disposition Clinical Impression: Nausea and vomiting during , Thrombocytopenia, Mild dehydration Abdominal pain Qualifiers: Abdominal location: epigastric Qualified Code(s): R10.13 - Epigastric pain Disposition: - TO HOME OR SELFCARE Is pt being admited?: No Does the pt Need Aspirin: No Condition: Stable Instructions: Acute Nausea and Vomiting (ED), Morning Sickness (ED), Abdominal Pain in (ED), Thrombocytopenia (ED) Additional Instructions: Please follow-up with your [facility] in 2 days as instructed. Stop Taking Reglan and start taking Phenergan per prescription and pre-[facility] Her condition recurs and worsens, please return to the emergency room. Avoid spicy food and carbonated beverages. Increase her fluid intake and over the next 72 hours eat diets that is planned to include banana, rice, applesauce and toast. He can also drink Gatorade. Prescriptions: Promethazine [Phenergan TAB] 25 mg PO Q6HR PRN #16 tab PRN Reason: nausea and vomiting Referrals: PRIMARY CAREMD [Primary Care Provider] - 2-3 Days [facility] [Provider Group] - 03/24/18 Forms: Accompanied Note, Work/School Release Form(ED)
[2018-03-22] MEDS ORDERED: NACL 0.9% 1000 ML 1,000 ML IV ONE (18:18)
[2018-03-22] MEDS ORDERED: PHENERGAN PO ONE (18:29)
[2018-03-22 18:49] LABS: Basophils % (Manual) 0 % (0.0-1.8); Eosinophils % (Manual) 0 % (0.0-4.3); Total Cells Counted 100
[2018-03-22 18:50] LABS: Anisocytosis 1+; Large Platelets Few; Platelet Estimate Consistent w Auto; Poikilocytosis 1+
[2018-03-23 03:25] VITALS: BP 119/60
== END 2018-03-22 20:15 | disposition home or self-care (01) ==
LOC: ED 12:19
DX: O21.9 Vomiting of pregnancy, unspecified (principal); Z3A.01 Less than 8 weeks gestation of pregnancy
CPT/HCPCS: 36415; 80053; 81001; 83690; 84702; 85007; 85025; 96361; 96374; 96375; 99283; J2405; J7030; J7042; Q0169

== ENCOUNTER 2018-07-21 18:57 | Outpatient (CLI) | payer BC, OTHER ==
[2018-07-21 19:50] VITALS: BP 121/69
[2018-07-21 20:03] LABS: Bilirubin,Urine NEG (Negative); Blood,Urine NEG (Negative); Color,Urine Yellow (Yellow); Mucus,Urine FEW /HPF; Protein,Urine <15 mg/dL mg/dL (Negative); Urobilinogen,Urine < 2.0 mg/dL (<2.0)
[2018-07-21] MEDS ORDERED: LACTATED RINGERS 1,000 ML IV ONE (20:07)
[2018-07-21] MEDS ORDERED: TYLENOL PO ONE (21:15)
[2018-07-21] MEDS ORDERED: ZOFRAN IV ONE (21:15)
[2018-07-21] MEDS ORDERED: ZOFRAN PO PRN (22:18)
== END 2018-07-21 23:00 | disposition home or self-care (01) ==
LOC: TRG 18:57
PROVIDERS: ATTEND Obstetrics & Gynecology
DX: O26.892 Other specified pregnancy related conditions, second trimester (principal); R10.9 Unspecified abdominal pain; R11.0 Nausea; Z3A.27 27 weeks gestation of pregnancy
CPT/HCPCS: 59025; 81001; J7120; J2405; Q0162

== ENCOUNTER 2019-06-05 12:20 | Emergency (ER) | payer OTHER ==
--- NOTE | 2019-06-05 12:37 | Event Note ---
ED Screening Note Date of service: 06/05/19 Time: 12:33 ED Screening Note: This is a 28 y.o. F. that presents to the ER s/p fall. Patient states she was turning around in attempt to walk out her front door when her right leg didn't move causing her to fall while hold 7 month old child. Patient states she heard and felt her knee pop. Reports pain to right knee and decreased ROM. Pain worse with weight bearing. This initial assessment/diagnostic orders/clinical plan/treatment(s) is/are s ubject to change based on patients health status, clinical progression and re- assessment by fellow clinical providers in the ED. Further treatment and workup at subsequent clinical providers discretion. Patient/guardian urged not to elope from the ED as their condition may be serious if not clinically assessed and managed. Initial orders include: XR right knee
[2019-06-05 12:40] VITALS: BP 136/67
--- NOTE | 2019-06-05 13:30 | Emergency Department Report ---
ED Extremity Problem HPI - General Chief complaint: Extremity Injury, Lower Stated complaint: R KNEE PAIN Time Seen by Provider: 06/05/19 12:32 Source: patient Mode of arrival: Wheelchair Limitations: No Limitations - History of Present Illness Initial comments: Patient is a 28-year-old female with no significant past medical history who is presenting status post fall. Patient states she turned while holding her child and felt intense pain in her right knee. Patient states she felt a grinding sensation and she fell to the ground. Patient has been unable to bear her full weight on the right lower extremity since. Patient can bend the knee to 90 but not beyond and can extend straight. Patient states pain is 9/10 severity as aching and throbbing. Patient denies any other injury. - Related Data Home Medications Medication Instructions Recorded Confirmed Last Taken Calcium Carbonate [Tums] 1,000 mg PO Q4HR 07/21/18 10/08/18 10/08/18 Vit-Fe Fumar-FA [ 1 tab PO QDAY 07/21/18 10/08/18 10/06/18 Vitamin] Previous Rx's Medication Instructions Recorded Last Taken Type Ibuprofen [Motrin 800 MG tab] 800 mg PO TID PRN #30 tablet 10/09/18 Unknown Rx Lidocain2.5%/Prilocai2.5% [Emla] 5 gm TP ONCE #1 tube 10/09/18 Unknown Rx Ibuprofen [Motrin 600 MG tab] 600 mg PO Q8H PRN #20 tablet 06/05/19 Unknown Rx traMADol [Ultram] 50 mg PO Q6HR PRN #12 tablet 06/05/19 Unknown Rx Allergies Allergy/AdvReac Type Severity Reaction Status Date / Time No Known Allergies Allergy Verified 09/02/18 18:12 ED Review of Systems ROS: Stated complaint: R KNEE PAIN Other details as noted in HPI Comment: All other systems reviewed and negative ED Past Medical Hx - Past Medical History Previous Medical History?: No Hx Hypertension: No Hx Congestive Heart Failure: No Hx Diabetes: No Hx Deep Vein Thrombosis: No Hx Renal Disease: No Hx Sickle Cell Disease: No Hx Seizures: No Hx Asthma: No Hx COPD: No Hx HIV: No Additional medical history: Hyperemesis gravidarum - Surgical History Additional Surgical History: eye surgery as a child - Social History Smoking Status: Never Smoker Substance Use Type: None - Medications Home Medications: Home Medications Medication Instructions Recorded Confirmed Last Taken Type Calcium Carbonate [Tums] 1,000 mg PO Q4HR 07/21/18 10/08/18 10/08/18 History Vit-Fe Fumar-FA [ 1 tab PO QDAY 07/21/18 10/08/18 10/06/18 History Vitamin] Ibuprofen [Motrin 800 MG tab] 800 mg PO TID PRN #30 tablet 10/09/18 Unknown Rx Lidocain2.5%/Prilocai2.5% [Emla] 5 gm TP ONCE #1 tube 10/09/18 Unknown Rx Ibuprofen [Motrin 600 MG tab] 600 mg PO Q8H PRN #20 tablet 06/05/19 Unknown Rx traMADol [Ultram] 50 mg PO Q6HR PRN #12 tablet 06/05/19 Unknown Rx ED Physical Exam - General Limitations: No Limitations General appearance: alert, in no apparent distress - Head Head exam: Present: atraumatic, normocephalic - Eye Eye exam: Present: normal appearance. Absent: PERRL, EOMI - ENT ENT exam: Present: mucous membranes moist - Neck Neck exam: Present: normal inspection - Respiratory Respiratory exam: Absent: respiratory distress - Extremities Exam Extremities exam: Present: normal inspection - Expanded Lower Extremity Exam Right Hip exam: Present: normal inspection, full ROM Knee exam: Present: normal inspection, tenderness, full knee extension. Absent: full ROM, swelling, abrasion, laceration, ecchymosis, dislocation, erythema, posterior draw sign - Back Exam Back exam: Present: normal inspection - Neurological Exam Neurological exam: Present: alert, oriented X3 - Psychiatric Psychiatric exam: Present: normal affect, normal mood - Skin Skin exam: Present: warm, dry, intact, normal color. Absent: rash ED Course Vital Signs 06/05/19 12:37 Temperature 99.3 F Pulse Rate 71 Respiratory 20 Rate Blood Pressure 136/67 O2 Sat by Pulse 100 Oximetry ED Medical Decision Making - Radiology Data Radiology results: image reviewed (x-ray of the right knee shows some slight decreased joint space but otherwise no acute process) - Medical Decision Making Patient was unable to bear her full weight on her right lower extremity. Patient placed in a knee immobilizer with crutches and be given pain meds and follow with orthopedics. Critical care attestation.: If time is entered above; I have spent that time in minutes in the direct care of this critically ill patient, excluding procedure time. ED Disposition Clinical Impression: Internal derangement of knee Qualifiers: Laterality: right Qualified Code(s): M23.91 - Unspecified internal derangement of right knee Disposition: DC- TO HOME OR SELFCARE Is pt being admited?: No Does the pt Need Aspirin: No Condition: Stable Instructions: Knee Immobilizer (ED), Knee Effusion (ED) Referrals: CALEB BARAHONA MD [Staff Physician] - 3-5 Days Time of Disposition: 13:31
[2019-06-05] MEDS ORDERED: ULTRAM PO ONE (13:31)
[2019-06-05] MEDS ORDERED: IBUPROFEN PO ONE (13:31)
--- NOTE | 2019-06-05 13:42 | XRay Report ---
RIGHT KNEE 3 VIEWS INDICATION / CLINICAL INFORMATION: anterior patella pain s/p fall. COMPARISON: None available. FINDINGS: No fracture, dislocation or right knee effusion is present. Joint spaces are well preserved on these nonweightbearing views. Signer Name: Jayme Ca MD Signed: 06/05/2019 1:38 PM Workstation Name: [id number]
== END 2019-06-05 14:01 | disposition home or self-care (01) ==
LOC: ED 12:20
DX: M23.91 Unspecified internal derangement of right knee (principal); Z79.899 Other long term (current) drug therapy; W04.XXXA Fall while being carried or supported by other persons, initial encounter; Y93.89 Activity, other specified; Y92.89 Other specified places as the place of occurrence of the external cause; Y99.0 Civilian activity done for income or pay

== ENCOUNTER 2022-05-01 10:39 | Emergency (ER) | payer OTHER ==
[2022-05-01 11:31] LABS: Bilirubin,Urine NEG (Negative); Blood,Urine SM (Negative); Color,Urine Amber (Yellow)
[2022-05-01 11:40] LABS: Bacteria,Urine 1+ /HPF (Negative); Mucus,Urine 3+ /HPF; Renal Epithelial Cells,Urine 20 /LPF
[2022-05-01 14:52] LABS: Hematocrit 39.3 % (30.3-42.9); Hemoglobin 12.5 gm/dl (10.1-14.3); Mean Corpuscular HGB Conc 32 % (30-34); Mean Corpuscular Volume 83 fl (79-97); Platelet Count 211 K/mm3 (140-440); Red Blood Count 4.73 M/mm3 (3.65-5.03)
[2022-05-01 15:02] LABS: Blood Urea Nitrogen 7 mg/dL (7-17); Calcium 9.8 mg/dL (8.4-10.2); Hemolysis Index 0
[2022-05-01 15:09] LABS: BUN/Creatinine Ratio 10
[2022-05-01] MEDS ORDERED: SODIUM CHLORIDE 0.9% 1000 ML 1,000 ML IV ONE (17:29)
[2022-05-01] MEDS ORDERED: ONDANSETRON 4 MG/2 ML INJ IV ONE (17:30)
--- NOTE | 2022-05-01 18:03 | Emergency Department Report ---
ED HPI - General Chief complaint: Nausea/Vomiting/Diarrhea Stated complaint: NAUSEA/VOMITING/BROWN URINE Source: patient Mode of arrival: Ambulatory Limitations: No Limitations - History of Present Illness Initial comments: 31-year-old female presents to the ED complaining of vomiting ,nausea ,abdominal pain x5 days. Patient states she is a 3 para 1 A1. States that she has not been evaluated by her INSTRUMENT CHECKER states that appointment is coming up next week. She states that she has been been unable to tolerate fluids for the last 5 days and had noticed foul odor to her urine. Patient denies any vaginal discharge or vaginal bleeding at present time. Patient is alert and oriented x3. No acute distress noted. No ill appearance noted. Patient states that she patient at [employer]. Location: abdomen Severity scale (0 -10): 3 Quality: cramping Consistency: intermittent Improves with: none Worsens with: none Associated symptoms: denies other symptoms - Related Data Home Medications Medication Instructions Recorded Confirmed Last Taken Calcium Carbonate [Tums] 1,000 mg PO Q4HR 07/21/18 10/08/18 10/08/18 Vit-Fe Fumar-FA [ 1 tab PO QDAY 07/21/18 10/08/18 10/06/18 Vitamin] Previous Rx's Medication Instructions Recorded Last Taken Type Ibuprofen [Motrin 800 MG tab] 800 mg PO TID PRN #30 tablet 10/09/18 Unknown Rx Lidocain2.5%/Prilocai2.5% [Emla] 5 gm TP ONCE #1 tube 10/09/18 Unknown Rx Ibuprofen [Motrin 600 MG tab] 600 mg PO Q8H PRN #20 tablet 06/05/19 Unknown Rx traMADoL [Ultram] 50 mg PO Q6HR PRN #12 tablet 06/05/19 Unknown Rx Doxylamine Succinate/Vit B6 1 each PO DAILY 30 Days #30 tab 05/01/22 Unknown Rx [Dicvaleri Dr 10-10 mg Tablet] Nitrofurantoin [place]/M-Cryst 100 mg PO Q12HR 7 Days #14 capsule 05/01/22 Unknown Rx [Macrobid CAP] Allergies Allergy/AdvReac Type Severity Reaction Status Date / Time No Known Allergies Allergy Verified 09/02/18 18:12 ED Review of Systems ROS: Stated complaint: NAUSEA/VOMITING/BROWN URINE Other details as noted in HPI Constitutional: denies: chills, fever Eyes: denies: eye pain, eye discharge, vision change ENT: denies: ear pain, throat pain Respiratory: denies: cough, shortness of breath, wheezing Cardiovascular: denies: chest pain, palpitations Endocrine: no symptoms reported Gastrointestinal: denies: abdominal pain, nausea, diarrhea Genitourinary: denies: urgency, dysuria, discharge Musculoskeletal: denies: back pain, joint swelling, arthralgia Skin: denies: rash, lesions Neurological: denies: headache, weakness, paresthesias Psychiatric: denies: anxiety, depression Hematological/Lymphatic: denies: easy bleeding, easy bruising ED Past Medical Hx - Past Medical History Hx Hypertension: No Hx Congestive Heart Failure: No Hx Diabetes: No Hx Deep Vein Thrombosis: No Hx Renal Disease: No Hx Sickle Cell Disease: No Hx Seizures: No Hx Asthma: No Hx COPD: No Hx HIV: No Additional medical history: Hyperemesis gravidarum - Surgical History Additional Surgical History: eye surgery as a child - Social History Smoking Status: Never Smoker Substance Use Type: None - Medications Home Medications: Home Medications Medication Instructions Recorded Confirmed Last Taken Type Calcium Carbonate [Tums] 1,000 mg PO Q4HR 07/21/18 10/08/18 10/08/18 History Vit-Fe Fumar-FA [ 1 tab PO QDAY 07/21/18 10/08/18 10/06/18 History Vitamin] Ibuprofen [Motrin 800 MG tab] 800 mg PO TID PRN #30 tablet 10/09/18 Unknown Rx Lidocain2.5%/Prilocai2.5% [Emla] 5 gm TP ONCE #1 tube 10/09/18 Unknown Rx Ibuprofen [Motrin 600 MG tab] 600 mg PO Q8H PRN #20 tablet 06/05/19 Unknown Rx traMADoL [Ultram] 50 mg PO Q6HR PRN #12 tablet 06/05/19 Unknown Rx Doxylamine Succinate/Vit B6 1 each PO DAILY 30 Days #30 tab 05/01/22 Unknown Rx [Diclegis Dr 10-10 mg Tablet] Nitrofurantoin [place]/M-Cryst 100 mg PO Q12HR 7 Days #14 capsule 05/01/22 Unknown Rx [Macrobid CAP] ED Physical Exam - General Limitations: No Limitations General appearance: alert, in no apparent distress - Head Head exam: Present: atraumatic, normocephalic - Eye Eye exam: Present: normal appearance - ENT ENT exam: Present: mucous membranes moist - Neck Neck exam: Present: normal inspection - Respiratory Respiratory exam: Present: normal lung sounds bilaterally. Absent: respiratory distress - Cardiovascular Cardiovascular Exam: Present: regular rate, normal rhythm. Absent: systolic murmur, diastolic murmur, rubs, gallop - GI/Abdominal GI/Abdominal exam: Present: soft, normal bowel sounds - Extremities Exam Extremities exam: Present: normal inspection - Back Exam Back exam: Present: normal inspection - Neurological Exam Neurological exam: Present: alert, oriented X3 - Psychiatric Psychiatric exam: Present: normal affect, normal mood - Skin Skin exam: Present: warm, dry, intact, normal color. Absent: rash ED Course Vital Signs 05/01/22 05/01/22 11:05 20:04 Temperature 98 F Pulse Rate 71 73 Respiratory 16 12 Rate Blood Pressure 161/74 142/78 [Left] O2 Sat by Pulse 100 100 Oximetry ED Medical Decision Making - Lab Data Result diagrams: 05/01/22 13:58 05/01/22 13:58 - Radiology Data [facility] [address] [place] [address] Ultrasound Report Signed Patient: MEHUL RICHARDS MR #: [id number] : 1990 Acct:[id number] Age/Sex: 31 / F ADM Date: 05/01/22 Loc: ED Attending Dr: Ordering Physician: MIMI MARTINEZ Date of Service: 05/01/22 Procedure(s): US transvaginal Accession Number(s): [id number] cc: MIMI MARTINEZ ULTRASOUND OBSTETRIC INDICATION: First trimester with abdominal pain. TECHNIQUE: Transabdominal and Transvaginal. COMPARISON: None available. FINDINGS: GESTATIONAL SAC: Well-defined oval shape and intrauterine in location. YOLK SAC: No significant abnormality. EMBRYO/FETUS: No significant abnormality. - [place]-Rump Length = 0.3 cm = 5 weeks, 6 day(s). - Heart Rate = 112 beats per minute. ADNEXA: A 3 cm probable corpus luteal cyst is seen in the left ovary. No other significant abnormality. FREE FLUID: None. ADDITIONAL FINDINGS: None. IMPRESSION: 1. Single, living intrauterine with estimated sonographic age of 5 weeks, 6 day(s). 2. No significant abnormality. Signer Name: Quang Pinto MD Signed: 05/01/2022 6:31 PM Workstation Name: [email or web address] Transcribed By: YUVAL Dictated By: Quang Pinto MD Electronically Authenticated By: Quang Pinto MD Signed Date/Time: 05/01/221830 DD/ 28 TD/TT: - Medical Decision Making 31-year-old female presents to the ED complaining of vomiting ,nausea ,abdominal pain x5 days. Patient states she is a 3 para 1 A1. States that she has not been evaluated by her INSTRUMENT CHECKER states that appointment is coming up next week. She states that she has been been unable to tolerate fluids for the last 5 days and had noticed foul odor to her urine. Patient denies any vaginal discharge or vaginal bleeding at present time. Patient is alert and oriented x3 . No acute distress noted. No ill appearance noted. Physical examination patient positive for urinary tract infection . Rechecked the patient is resting quietly and comfortable and feeling better. I discussed the results of diagnostic study, my clinical impression and the plan for further treatment with the patient. Patient agrees with plan and discharge at this present time. All question addressed. I have given the patient instruction regarding a diagnosis ,expectation ,follow- up and return precaution. I explained to the patient that emergent condition may arise and to return to the ED for new worsen and any new persisting condition. I have explained the importance of following up with the primary care physician or referral physician listed below has instructed. The patient verbalized understanding of discharge instruction. Abnormal Lab Results 05/01/22 05/01/22 05/01/22 11:12 11:13 13:58 WBC 5.3 RBC 4.73 Hgb 12.5 Hct 39.3 MCV 83 MCH 26 L MCHC 32 RDW 15.0 Plt Count 211 Sodium Potassium Chloride Carbon Dioxide Anion Gap BUN Creatinine Estimated GFR BUN/Creatinine Ratio Glucose Calcium HCG, Quant 92120 H Urine Color Sheila Urine Turbidity Cloudy Urine pH 6.0 Ur Specific [place] 1.030 Urine Protein 100 mg/dl Urine Glucose (UA) Neg Urine Ketones 80 Urine Blood Sm Urine Nitrite Neg Urine Bilirubin Neg Urine Urobilinogen 2.0 Ur Leukocyte Esterase Lg Urine WBC (Auto) 29.0 H Urine RBC (Auto) 14.0 U Epithel Cells (Auto) 62.0 H Urine Bacteria (Auto) 1+ Ur Renal Epithelial Cell 20 Urine Mucus 3+ Urine Yeast (Budding) Few Blood Type Ord Rhogam Gestat Weeks 05/01/22 05/01/22 13:58 14:31 WBC RBC Hgb Hct MCV MCH MCHC RDW Plt Count Sodium 135 L Potassium 4.0 Chloride 100.1 Carbon Dioxide 21 L Anion Gap 18 BUN 7 Creatinine 0.7 Estimated GFR > 60 BUN/Creatinine Ratio 10 Glucose 105 H Calcium 9.8 HCG, Quant Urine Color Urine Turbidity Urine pH Ur Specific [place] Urine Protein Urine Glucose (UA) Urine Ketones Urine Blood Urine Nitrite Urine Bilirubin Urine Urobilinogen Ur Leukocyte Esterase Urine WBC (Auto) Urine RBC (Auto) U Epithel Cells (Auto) Urine Bacteria (Auto) Ur Renal Epithelial Cell Urine Mucus Urine Yeast (Budding) Blood Type B POSITIVE Ord Rhogam Gestat Weeks Rh pos Critical care attestation.: If time is entered above; I have spent that time in minutes in the direct care of this critically ill patient, excluding procedure time. ED Disposition Clinical Impression: Nausea and vomiting during , Acute urinary tract infection Qualifiers: Weeks of gestation: less than 8 weeks Qualified Code(s): Z3A.01 - Less than 8 weeks gestation of Disposition: 01 HOME / SELF CARE / HOMELESS Is pt being admited?: No Does the pt Need Aspirin: No Condition: Stable Instructions: First Trimester of , [id number], Hyperemesis Gravidarum, Urinary Tract Infection, Adult, [id number], Morning Sickness, [id number] Additional Instructions: Take medication as prescribed Return to ED for any worsening symptoms Prescriptions: Doxylamine Succinate/Vit B6 [Diclegis Dr 10-10 mg Tablet] 1 each PO DAILY 30 Days #30 tab Nitrofurantoin [place]/M-Cryst [Macrobid CAP] 100 mg PO Q12HR 7 Days #14 capsule Referrals: PRIMARY CARE, [Primary Care Provider] - 3-5 Days [facility] [Provider Group] - 3-5 Days Forms: Work/School Release Form(ED) Time of Disposition: 19:42
--- NOTE | 2022-05-01 18:35 | Ultrasound Report ---
ULTRASOUND OBSTETRIC INDICATION: First trimester with abdominal pain. TECHNIQUE: Transabdominal and Transvaginal. COMPARISON: None available. FINDINGS: GESTATIONAL SAC: Well-defined oval shape and intrauterine in location. YOLK SAC: No significant abnormality. EMBRYO/FETUS: No significant abnormality. - [place]-Rump Length = 0.3 cm = 5 weeks, 6 day(s). - Heart Rate = 112 beats per minute. ADNEXA: A 3 cm probable corpus luteal cyst is seen in the left ovary. No other significant abnormalit y. FREE FLUID: None. ADDITIONAL FINDINGS: None. IMPRESSION: 1. Single, living intrauterine with estimated sonographic age of 5 weeks, 6 day(s). 2. No significant abnormality. Signer Name: Quang Pinto MD Signed: 05/01/2022 6:31 PM Workstation Name: [id number]
--- NOTE | 2022-05-01 18:35 | Ultrasound Report ---
ULTRASOUND OBSTETRIC INDICATION: First trimester with abdominal pain. TECHNIQUE: Transabdominal and Transvaginal. COMPARISON: None available. FINDINGS: GESTATIONAL SAC: Well-defined oval shape and intrauterine in location. YOLK SAC: No significant abnormality. EMBRYO/FETUS: No significant abnormality. - [place]-Rump Length = 0.3 cm = 5 weeks, 6 day(s). - Heart Rate = 112 beats per minute. ADNEXA: A 3 cm probable corpus luteal cyst is seen in the left ovary. No other significant abnormalit y. FREE FLUID: None. ADDITIONAL FINDINGS: None. IMPRESSION: 1. Single, living intrauterine with estimated sonographic age of 5 weeks, 6 day(s). 2. No significant abnormality. Signer Name: Quang Pinto MD Signed: 05/01/2022 6:31 PM Workstation Name: [id number]
[2022-05-01 20:04] VITALS: BP 142/78
== END 2022-05-01 20:04 | disposition home or self-care (01) ==
LOC: ED 10:39
DX: O21.8 Other vomiting complicating pregnancy (principal); O23.41 Unspecified infection of urinary tract in pregnancy, first trimester; N39.0 Urinary tract infection, site not specified; Z3A.01 Less than 8 weeks gestation of pregnancy
CPT/HCPCS: 36415; 76801; 76817; 80048; 81001; 84702; 85027; 86900; 86901; 87086; 96361; 96374; 99284; J2405; J7030; 76830

== ENCOUNTER 2022-07-04 00:47 | Emergency (ER) | payer OTHER ==
[2022-07-04 00:59] VITALS: BP 122/81
== END 2022-07-04 18:00 | disposition left against medical advice (07) ==
LOC: ED 00:47
DX: R11.10 Vomiting, unspecified (principal); Z53.21 Procedure and treatment not carried out due to patient leaving prior to being seen by health care provider